=== PATIENT | female | born 1975 | race Caucasian/White ===

== ENCOUNTER 2024-01-02 12:46 | Emergency (ER) | payer BC, SELFPAY ==
--- NOTE | ~2024-01-02 | CT_ITS ---
EXAMINATION: CT HEAD WITHOUT CONTRAST CLINICAL INFORMATION: seizing COMPARISON: None available. TECHNIQUE: Contiguous axial imaging was performed from the skull base to vertex without intravenous administration of contrast. This CT examination was performed using dose optimization techniques as appropriate, variously including the following: *Automated exposure control *Adjustment of mA and/or kV according to patient size (this includes techniques or standardized protocols for targeted exams where dose is matched to indication/reason for exam; i.e. extremities or head) *Use of iterative reconstruction technique DLP: 613 mGy-cm FINDINGS: Bony calvarium is intact. Skull base is intact. Metallic pearcing in the right ear. No acute intracranial hemorrhage, mass effect, midline shift, hydrocephalus or herniation. Burrell-white matter differentiation is normal. Probable artifactual white matter hypodensities involving mostly the right occipital lobe. Sellar/suprasellar region is normal. Craniocervical junction is intact. No air-fluid levels in the included paranasal sinuses and likely post surgical changes in the paranasal sinuses suggesting bilateral inferior ethmoidectomies and medial wall maxillary antrostomies. Tympanic cavities and mastoid cells are aerated. CT/CT head/brain wo IV con IMPRESSION: No acute intracranial hemorrhage. Postsurgical changes, paranasal sinuses. If patient's symptoms persist posterior MRI brain. Electronically signed by: Billy Chen MD 01/02/2024 03:49 PM EDT
[2024-01-02 13:00] VITALS: BP 107/59; BP 121/76; PULSE 100; PULSE 93; RESP 20; TEMP 36.8; O2SAT 100; O2SAT 96; BMI 24.7
--- NOTE | 2024-01-02 13:31 | ED_ITS ---
HPI - General Adult General Chief complaint: Seizure Stated complaint: SEIZURE X 4,WITNESSED, 2-3 MIN,POSTICTAL,2MGVERCED Time Seen by Provider: 01/02/24 13:30 Source: patient and EMS Mode of arrival: EMS Limitations: physical limitation (patient seizing when arrived) History of Present Illness ED Provider: Tiffanie Norris PA-C HPI narrative: Patient is a 48 year old assigned female at with a history of post traumatic seizures presenting to the emergency department today after being found seizing. EMS states that the patient was found unresponsive in her car and had multiple seizures over the course of her transportation here. EMS states that the patient was given versed and has stopped seizing. Related Data Allergies Allergy/AdvReac Type Severity Reaction Status Date / Time No Known Allergies Allergy Verified 01/02/24 13:03 Review of Systems 2 Review of Systems: Yes Other (patient seizing) Neurologic: Reports convulsions and Reports seizure-like activity PMFSH Past Medical History Attestation statement: The following information was validated with the patient. Source: old records reviewed, nursing notes reviewed and other (patient's ex provided additional history) Social History Social History Advance Directives: No Advance Directives Information Provided: Yes Physical Exam ED Vital Signs: Vital Signs - 24 hr 01/02/24 13:00 01/02/24 14:44 01/02/24 16:26 Temperature 98.2 F 97.9 F 97.9 F Pulse Rate 93 78 78 Respiratory Rate 20 16 16 Blood Pressure 107/59 L 98/61 98/61 Pulse Oximetry 96 98 98 Oxygen Delivery Method Room Air Room Air Room Air BMI result Body Mass Index 24.7 Const Nutritional Appearance: well nourished Limitations: other limitations (patient seizing) HENMT Head: Yes normal to inspection and Yes atraumatic Ears: hearing grossly normal bilaterally and external ears normal General nose exam: Normal external nose present, no nasal discharge noted and no epistaxis Face and sinus: Yes normal facial exam, No abrasion and No laceration Mouth: Normal oral and palatal mucosa present, no drooling and no muffled voice Eyes General: appearance normal, both eyes and all related structures Periorbital: periorbital findings normal Eyelids: Yes eyelids normal Conjunctivae: conjunctivae normal Pupils: Equal, round and reactive pupils present Neck Neck: Yes normal visual inspection, Yes full ROM and Yes no lymphadenopathy Chest Chest palpation & inspection: normal inspection of the chest Resp Effort & Inspection: normal respiratory effort GI Inspection: Yes normal to inspection Neuro Cranial nerves: Yes Equal, round and reactive pupils present Extrem General: Yes normal to inspection, Yes full ROM and Yes capillary refill normal Psych Appearance: grossly normal Medications Administered Discontinued Medications Generic Name Dose Route Start Last Admin Trade Name Wallace PRN Reason Stop Dose Admin Levetiracetam 1,000 mg in 100 mls @ 400 mls/hr 01/02/24 13:31 01/02/24 14:06 Keppra IV 01/02/24 13:45 Infused ONCE ONE Infusion Magnesium Sulfate 2 gm in 50 mls @ 25 mls/hr 01/02/24 14:16 01/02/24 14:44 Magnesium Sulfate/H2o IV 01/02/24 16:15 25 mls/hr ONCE ONE Administration Midazolam HCl 5 mg 01/02/24 14:48 01/02/24 14:54 Midazolam Hcl/Pf 2 Mg/2 Ml Vial IVPUSH 01/02/24 14:49 5 mg ONCE ONE Administration Medical Decision Making Medical Decision Making [facility] Narrative: Patient is a 48 year old assigned female at with a history of post traumatic seizures presenting to the emergency department today after seizing. Patient's physical exam initially showed a seizing individual. Patient's blood work was unremarkable. Patient's urine showed no acute process. Patient's EKG showed a slightly prolonged QTC for which I proactively gave IV magnesium. Patient's head CT showed no acute process. Patient seized once while in the department and was given an additional 5mg of Versed, which stopped her seizing. Patient's ex called the department and informed me of the patient's history including post traumatic seizures for which she takes her medications and follows with her neurologist. He stated the patient has no substance use / abuse history what so ever and has been having issues with these seizures for a year. Patient eventually became awake and alert. Patient was AO x3 and understood she had a seizure. Patient was able to ambulate and tolerate PO intake without incident. Given she has not seized again, is on seizure medication at home, and follows with a neurologist - I felt comfortable with discharging her. I explained my physical exam findings as well as all test results to the patient. I answered all questions asked by the patient. I stressed the importance of the patient taking her medication as directed (either prescribed or as the over the counter packaging recommends). I stressed the importance of the patient following up with her primary care provider and her neurologist. I stressed the importance of the patient returning to the emergency department immediately if her symptoms were to worsen or if she were to develop any dizziness, shortness of breath, difficulty breathing, chest pain, blurry vision, loss of vision, nausea, vomiting, abdominal pain, fever, chills, back pain, or any other complaints. Patient verbalized agreement and understanding with this treatment plan and discharge. Differential Diagnosis Differential Diagnoses: The differential diagnosis associated with the presentation includes Breakthrough seizure Admission/Observation Consideration of admission/observation: Escalation of care including admission/observation considered Patient would have been admitted to the hospital had her work up had any findings where hospital admission was appropriate and her clinical presentation warranted hospital admission. Lab Data [facility] Lab Attestation statement: I reviewed the patient's lab results. My interpretation of these results are in the [facility] Rationale portion of this note. 01/02/24 14:10 01/02/24 14:10 Labs: Lab Results 01/02/24 01/02/24 01/02/24 Range/Units 14:10 14:50 15:52 WBC 7.1 (4.8-10.8) X10*3/uL RBC 3.93 L (4.20-5.50) X10*6/uL Hgb 11.9 L (12.0-16.0) g/dl Hct 34.6 L (37.0-47.0) % MCV 88.0 (80.0-98.0) fL MCH 30.3 (27.0-33.0) pg MCHC 34.4 (31.0-35.0) g/dl RDW 12.2 (11.0-16.0) % Plt Count 259 (160-400) X10*3/uL MPV 9.1 L (9.4-12.3) fL Immature Gran % (Auto) 0.3 (0.0-0.4) % Neut % (Auto) 70.8 (45-73) % Lymph % (Auto) 19.7 L (20-40) % [place] % (Auto) 7.3 (2-11) % Eos % (Auto) 0.8 (0-4) % Baso % (Auto) 1.1 (0-2) % Lymph # (Auto) 1.4 (1.2-4.9) X10*3/uL [place] # (Auto) 0.5 (0.1-1.2) X10*3/uL Eos # (Auto) 0.1 (0.0-0.4) X10*3/uL Baso # (Auto) 0.1 (0.0-0.2) X10*3/uL Abs Immat Gran (auto) 0.02 (0.00-0.03) X10*3/uL Absolute Neuts (auto) 5.0 (2.0-8.3) x10*3/uL Absolute Nucleated RBC 0.000 (0.0-0.012) X10*3/uL Nucleated RBC % (auto) 0.0 (0.0-0.2) /100WBC Sodium 142 (135-145) mmol/L Potassium 3.4 (3.3-5.1) mmol/L Chloride 115 H (96-108) mmol/L Carbon Dioxide 22 (22-29) mmol/L Anion Gap 8 L (12-20) BUN 10 (9-16) mg/dL Creatinine 0.71 (0.5-1.4) mg/dL Estim Creat Clear Calc 87.1 Estimated GFR > 60 Random Glucose 97 (60-115) mg/dL Calcium 9.0 (8.4-10.2) mg/dL Magnesium 2.0 (1.6-2.6) mg/dL Total Bilirubin 0.4 (0.0-1.0) mg/dL AST 15 (5-31) U/L ALT 10 (0-31) U/L Alkaline Phosphatase 60 (39-117) U/L Total Protein 5.9 L (6.5-8.0) g/dL Albumin 3.7 (3.5-5.0) g/dL Urine Color Yellow Urine Appearance Clear Urine pH 7.0 (5.0-9.0) Ur Specific [place] 1.010 (1.005-1.025) Urine Protein Negative (Neg-Trace) mg/dL Urine Glucose (UA) Negative (Negative) mg/dL Urine Ketones Negative (Negative) mg/dL Urine Blood Negative (Negative) Urine Nitrite Negative (Negative) Ur Leukocyte Esterase Trace H (Negative) Urine RBC 0-2 (0-2) /HPF Urine WBC 0-5 (0-5) /HPF Ur Squamous Epith Cells 6-10 (0-2) /HPF Urine Bacteria None Seen (None Seen) Hyaline Casts 0-2 (0-2) /LPF Influenza Type A (PCR) NEGATIVE (Negative) Influenza Type B (PCR) NEGATIVE (Negative) RSV RNA Qual (PCR) NEGATIVE (Negative) SARS-CoV-2 RNA (RT-PCR) NEGATIVE (Negative) Independent Interpretation I performed an independent interpretation of an: EKG and CT Scan Interpretation: My interpretation is in agreement with the radiologist's impression of this imaging study. L EXAMINATION: CT HEAD WITHOUT CONTRAST CLINICAL INFORMATION: seizing COMPARISON: None available. TECHNIQUE: Contiguous axial imaging was performed from the skull base to vertex without intravenous administration of contrast. This CT examination was performed using dose optimization techniques as appropriate, variously including the following: *Automated exposure control *Adjustment of mA and/or kV according to patient size (this includes techniques or standardized protocols for targeted exams where dose is matched to indication/reason for exam; i.e. extremities or head) *Use of iterative reconstruction technique DLP: 613 mGy-cm FINDINGS: Bony calvarium is intact. Skull base is intact. Metallic pearcing in the right ear. No acute intracranial hemorrhage, mass effect, midline shift, hydrocephalus or herniation. Burrell-white matter differentiation is normal. Probable artifactual white matter hypodensities involving mostly the right occipital lobe. Sellar/suprasellar region is normal. Craniocervical junction is intact. No air- fluid levels in the included paranasal sinuses and likely post surgical changes in the paranasal sinuses suggesting bilateral inferior ethmoidectomies and medial wall maxillary antrostomies. Tympanic cavities and mastoid cells are aerated. CT/CT head/brain wo IV con IMPRESSION: No acute intracranial hemorrhage. Postsurgical changes, paranasal sinuses. If patient's symptoms persist posterior MRI brain. Electronically signed by: Billy Chen MD 01/02/2024 03:49 PM EDT RP Dictated By: Billy Patel Signed By: Electronically signed by Billy Martel 01/02/24 1549 Vent. Rate: 101 BPM Atrial Rate: 101 BPM P-R Int: 156 ms QRS Dur: 078 ms QT Int: 394 ms P-R-T Axes: 074 -08 073 degrees QTc Int: 510 ms Sinus tachycardia Possible Left atrial enlargement Borderline ECG No previous ECGs available DD/ 1334 Radiology Impression Discussion of test interpretation with radiology: I have reviewed the radiologist's reading. Independent Historian Clinical information obtained from an independent historian. History obtained from or confirmed by: EMS (EMS provided additional history) and Other (patient's ex provided additional history) Critical Care Time Critical Care Time Critical Care Time: Yes Total Critical Care Time: 46 Attestation: I spent 46 minutes of Critical Care Time with this patient. This does not include time spent on separately reported billable procedures. Discharge Plan Discharge Clinical Impression: Focal seizure Patient Disposition: Home, Self-Care Instructions: Seizures After Traumatic Brain Injury (ED) Additional Instructions: Follow up with your primary care provider and your neurologist. Continue taking your seizure medication as prescribed, at the same time, every day. Return to the emergency department immediately if your symptoms worsen or if you develop any dizziness, shortness of breath, difficulty breathing, chest pain, blurry vision, loss of vision, nausea, vomiting, abdominal pain, fever, chills, back pain, or any other complaints. Referrals: [facility] [place] Family Medicine [Provider Group] (Call to establish and follow up with a primary care provider. If you already have a primary care provider, please follow up with them.) [facility] [place] Primary CareColleen [Provider Group] (Call to establish and follow up with a primary care provider. If you already have a primary care provider, please follow up with them.) [facility] [place] Primary CareMelva [Provider Group] (Call to establish and follow up with a primary care provider. If you already have a primary care provider, please follow up with them.) [facility] [place] Neuro/Sleep [Provider Group] (Call to establish and follow up with a neurologist.) Stand Alone Forms: Work/School Release Interventions: ED Discharge Assessment Last Done: 01/02/24 16:26 Discharge Date/Time: 01/02/24 16:28 Print Language: Lao
--- NOTE | 2024-01-02 13:31 | ECG_ITS ---
Test Reason : SEIZURE Blood Pressure : / mmHG Vent. Rate : 101 BPM Atrial Rate : 101 BPM P-R Int : 156 ms QRS Dur : 078 ms QT Int : 394 ms P-R-T Axes : 074 -08 073 degrees QTc Int : 510 ms Sinus tachycardia Possible Left atrial enlargement Borderline ECG No previous ECGs available Referred By: Tiffanie Norris Electronically Signed By:TITUS CULLEN
--- NOTE | 2024-01-02 13:49 | PC.NURSE ---
patient states to tech that she felt as if she was about to have a seizure, upon entering the room seizure like activity noted. provider made aware verbal order 5mg versed given
[2024-01-02] MEDS: levETIRAcetam in NaCl (iso-os) 1,000 MG/100 ML PIGGYBACK 400 MG IV (13:51)
[2024-01-02 14:15] LABS: MANUAL DIFF FLAG NO
[2024-01-02 14:16] LABS: Basophils Absolute Auto 0.1 X10*3/uL (0.0-0.2); Basophils Percent Auto 1.1 % (0-2); Eosinophils Absolute Auto 0.1 X10*3/uL (0.0-0.4); Eosinophils Percent Auto 0.8 % (0-4); Hematocrit 34.6 % (37.0-47.0); Hemoglobin 11.9 g/dl (12.0-16.0); Imm Gran Abs Auto 0.02 X10*3/uL (0.00-0.03); Imm Gran Pct Auto 0.3 % (0.0-0.4); Lymphocytes Absolute Auto 1.4 X10*3/uL (1.2-4.9); Lymphocytes Percent Auto 19.7 % (20-40); Mean Corpuscular HGB Conc 34.4 g/dl (31.0-35.0); Mean Corpuscular Hemoglobin 30.3 pg (27.0-33.0); Mean Platelet Volume 9.1 fL (9.4-12.3); Monocytes Absolute Auto 0.5 X10*3/uL (0.1-1.2); Monocytes Percent Auto 7.3 % (2-11); Neutrophils Percent Auto 70.8 % (45-73); Platelet Count 259 X10*3/uL (160-400); Red Blood Count 3.93 X10*6/uL (4.20-5.50); Red Cell Distribution Width 12.2 % (11.0-16.0); White Blood Count 7.1 X10*3/uL (4.8-10.8)
[2024-01-02 14:31] LABS: Alanine Aminotransferase 10 U/L (0-31); Albumin Level 3.7 g/dL (3.5-5.0); Alkaline Phosphatase 60 U/L (39-117); Anion Gap 8 (12-20); Aspartate Amino Transferase 15 U/L (5-31); Bilirubin Total 0.4 mg/dL (0.0-1.0); Blood Urea Nitrogen 10 mg/dL (9-16); Carbon Dioxide 22 mmol/L (22-29); Chloride 115 mmol/L (96-108); Creatinine Clr Calc Pharmacy 87.1; Estimated Glomerular Filt Rate > 60; Glucose Random 97 mg/dL (60-115); Potassium 3.4 mmol/L (3.3-5.1); Sodium 142 mmol/L (135-145); Total Protein 5.9 g/dL (6.5-8.0)
[2024-01-02 14:44] VITALS: BP 98/61; PULSE 78; RESP 16; TEMP 36.6; O2SAT 98
[2024-01-02] MEDS: Magnesium Sulfate/H2O 2 GM/50 ML PIGGYBACK IV (14:44)
[2024-01-02] MEDS: Midazolam HCl/PF 2 MG/2 ML VIAL 5 MG IVPUSH (14:54)
[2024-01-02 15:33] LABS: Influenza A PCR NEGATIVE (Negative); Influenza B PCR NEGATIVE (Negative); Resp Syncy Virus RNA Qual PCR NEGATIVE (Negative); SARS COV2 PCR INHOUSE NEGATIVE (Negative)
[2024-01-02 16:03] LABS: Appearance Urine Clear; Color Urine Yellow; Glucose Urine UA Negative (Negative); Leukocyte Esterase Urine Trace (Negative); Nitrite Urine Negative (Negative); UMIC TRIGGER UACC YES; Urine Blood Negative (Negative); Urine Ketones Negative (Negative); Urine Protein Negative (Neg-Trace)
[2024-01-02 16:05] LABS: Bacteria Urine None Seen (None Seen); Hyaline Casts Urine 0-2 /LPF (0-2); RBC Urine 0-2 /HPF (0-2); WBC Urine 0-5 /HPF (0-5)
[2024-01-02 16:26] VITALS: BP 98/61; PULSE 78; RESP 16; TEMP 36.6; O2SAT 98
== END 2024-01-02 16:28 | disposition home or self-care (01) ==
PROVIDERS: Physician Assistant Medical; Emergency Provider Emergency Medicine Emergency Medical Services
DX: R56.9 Unspecified convulsions (principal); R40.4 Transient alteration of awareness; R00.0 Tachycardia, unspecified; Z03.818 Encounter for observation for suspected exposure to other biological agents ruled out; Z79.899 Other long term (current) drug therapy
CPT/HCPCS: 0241U; 70450; 80053; 81001; 81003; 83735; 85025; 93005; 96374; 96375; 99284; J1953; J2250; J3475

== ENCOUNTER → 2024-01-02 13:31 | Outpatient (BNV) | payer BC, SELFPAY | PROVIDERS: Emergency Provider Emergency Medicine Emergency Medical Services; Visit Provider Internal Medicine | DX: R00.0 Tachycardia, unspecified (principal); R94.31 Abnormal electrocardiogram [ECG] [EKG]; G40.89 Other seizures | CPT/HCPCS: 93010 ==

== ENCOUNTER → 2024-01-02 13:31 | Outpatient (BNV) | payer BC, SELFPAY | PROVIDERS: Emergency Provider Emergency Medicine Emergency Medical Services; Visit Provider Radiology Diagnostic Radiology | DX: G40.89 Other seizures (principal) | CPT/HCPCS: 70450 ==

== ENCOUNTER 2024-11-09 12:28 | Emergency (ER) | payer BC, SELFPAY ==
[2024-11-09] VITALS (8 sets, daily range): BP systolic 106–124; BP diastolic 64–77; PULSE 62–83; RESP 13–22; TEMP 36.8–37.1; O2SAT 98–100; BMI 26.7
--- NOTE | ~2024-11-09 | CT_ITS ---
EXAMINATION: CT HEAD WITHOUT CONTRAST CLINICAL INFORMATION: Headache COMPARISON: 01/02/2024 TECHNIQUE: Contiguous axial imaging was performed from the skull base to vertex without intravenous administration of contrast. This CT examination was performed using dose optimization techniques as appropriate, variously including the following: *Automated exposure control *Adjustment of mA and/or kV according to patient size (this includes techniques or standardized protocols for targeted exams where dose is matched to indication/reason for exam; i.e. extremities or head) *Use of iterative reconstruction technique DLP: 629 mGY*cm FINDINGS: There is no acute ischemic change. There is no intracranial hemorrhage. There is no mass-effect or midline shift. Basal cisterns and ventricles are within normal limits for age/cerebral volume. Orbits are symmetrical and unremarkable. Paranasal sinuses and mastoid air cells are pneumatized. Bilateral uncinectomy has been performed, unchanged. No other bony abnormalities are evident. CT/CT head/brain wo IV con IMPRESSION: No acute intracranial abnormality. Changes from prior bilateral sinus surgery. Electronically signed by: Albert Miles MD 11/09/2024 02:10 PM EDT
--- NOTE | 2024-11-09 12:53 | ECG_ITS ---
Test Reason : SEIZURE Blood Pressure : */* mmHG Vent. Rate : 63 BPM Atrial Rate : 63 BPM P-R Int : 180 ms QRS Dur : 82 ms QT Int : 434 ms P-R-T Axes : 68 -2 65 degrees QTcB Int : 444 ms Normal sinus rhythm Normal ECG When compared with ECG of 02-Jan-2024 13:34, Vent. rate has decreased by 38 bpm QT has shortened Referred By: Trini Cha Electronically Signed By: LEATHA HAYES MD
[2024-11-09 12:56] LABS: Glucose, Whole Blood 79 mg/dL (60-115)
--- NOTE | 2024-11-09 12:58 | ED.SEIZURE ---
HPI - Seizure General Chief Complaint: Seizure Stated Complaint: Seizure Time Seen by Provider: 11/09/24 12:40 Source: patient, EMS and old records reviewed Mode of arrival: EMS Limitations: no limitations History of Present Illness ED Provider: ANA HPI Narrative: 48 yo female with PMH of TBI and seizures on keppra, vimpat and topamax but admits to missing some keppra. She reportedly had 5 min seizure at home unclear if she fell with no return to baseline in between and what looked like 6 shaking episodes in that 5 min duration. EMS noted another seizure with hypoxia to 82% lasting 5 min. She was given 2mg IV versed. On arrival she is sleepy but not confused, no tongue biting or incontinence. She c/o mild headache. She reports not taking meds and lack of sleep as the cause of symptoms MD complaint: seizure Onset (ago): day(s) (today [employer]) Description of Episode: loss of consciousness Duration of episode: 5 -: minutes(s) Witnessed: Yes - by Bystander Trauma: No Seizure History: Yes Place: Home Possible Precipitating Event: lack of sleep and medication Associated symptoms: denies other symptoms Treatments prior to arrival: benzodiazepines Related Data Allergies Allergy/AdvReac Type Severity Reaction Status Date / Time No Known Allergies Allergy Verified 11/09/24 12:56 Review of Systems Review of Systems: Constitutional : No Fever, No Chills, No Fatigue ENT/Mouth : No sore throat, No Rhinorrhea Eyes: No Eye Pain, No Swelling, No Redness Cardiovascular : No Chest Pain, No SOB, No Dyspnea on Exertion Respiratory : No Cough, No Sputum Gastrointestinal : No Nausea, No Vomiting, No Diarrhea, No abdominal Pain Genitourinary : No Dysuria, No Urinary Frequency, No Hematuria, Musculoskeletal : No joint pain, No Myalgias, No Joint Swelling Skin : No Skin Lesions, No rash Neuro : No Weakness, No Numbness, No Dizziness, positive Headache Psych : No Anxiety/Panic, No Depression Heme/Lymph: No Bruising, No Bleeding,No Lymphadenopathy Endocrine : No Polyuria, No Polydipsia All other systems reviewed and are negative [facility] Past Medical History Attestation statement: The following information was validated with the patient. Source: old records reviewed Medical History Seizure Social History Social History (Updated 11/09/24 @ 13:12 by Trini Cha DO) Patient Tobacco Use Status: Tobacco use Unknown Smoked in Last 30 Days: No Use of substances other than those prescribed or required for medical reasons: No Advance Directives: Yes Advance Directives Information Provided: Yes Advance Directives on File: No Patient : No Physical Exam Vital Signs: Vital Signs: Last Vital Signs Temp 98.5 F 11/09/24 18:28 Pulse 70 11/09/24 18:28 Resp 22 H 11/09/24 18:28 BP 110/68 11/09/24 18:28 Pulse Ox 99 11/09/24 18:28 O2 Del Method Room Air 11/09/24 18:28 BMI result Body Mass Index 26.7 Appearance: Alert. Oriented X3. No acute distress. fatigue and tired Eyes: Pupils equal, round and reactive to light. ENT: Pharynx normal. Neck: Normal inspection. Neck supple. CVS: Normal heart rate and rhythm. Pulses normal. Respiratory: No respiratory distress. Breath sounds normal. Abdomen: Soft and nontender. Skin: Skin warm and dry. Normal skin color. Normal skin turgor. Extremities: No lower extremity edema. No calf ttp Neuro: Oriented X 3. No motor deficit. No sensory deficit. CN2-12 intact Course Course Course Narrative: signed out to Dr. Carvalho pending improvement from medications she is still sleepy - anticipate DC home Medications Administered Discontinued Medications Generic Name Dose Route Start Last Admin Trade Name Wallace PRN Reason Stop Dose Admin Diazepam 2.5 mg 11/09/24 12:54 11/09/24 13:05 Diazepam 10 Mg/2 Ml Cartridge IVPUSH 11/09/24 12:55 2.5 mg STAT STA Administration Levetiracetam 1,500 mg in 100 mls @ 400 mls/hr 11/09/24 12:53 11/09/24 13:24 Keppra IV 11/09/24 13:07 Infused ONCE ONE Infusion Medical Decision Making Medical Decision Making [facility] Narrative: 48 yo female with known seizures not compliant with keppra s/p seizure will give additional valium and IV keppra - suspect non compliance. C/o headache unclear if there was trauma CT head ordered, Will monitor closely At 19:00 patient awake alert no acute distress. Will discharge patient home. CT scan of the head showed no acute bleeding. Patient told she needs to take her medication on a regular basis. She will be discharged home in stable condition. Differential Diagnosis Differential Diagnoses: The differential diagnosis associated with the presentation includes non compliance, seizures, head injury Admission/Observation Consideration of admission/observation: Escalation of care including admission/observation considered observed x 3 hours - stable VS at baseline, given valium and IV keppra I think it is reasonable to send her home given she was not taking her keppra and if she resumes her medications she should be able to manage seizures Lab Data 11/09/24 13:10 11/09/24 13:10 Labs: Lab Results 11/09/24 11/09/24 11/09/24 Range/Units 12:53 13:10 15:04 WBC 6.4 (4.8-10.8) X10*3/uL RBC 4.08 L (4.20-5.50) X10*6/uL Hgb 12.4 (12.0-16.0) g/dl Hct 36.2 L (37.0-47.0) % MCV 88.7 (80.0-98.0) fL MCH 30.4 (27.0-33.0) pg MCHC 34.3 (31.0-35.0) g/dl RDW 12.5 (11.0-16.0) % Plt Count 237 (160-400) X10*3/uL MPV 8.8 L (9.4-12.3) fL Immature Gran % (Auto) 0.5 H (0.0-0.4) % Neut % (Auto) 77.0 H (45-73) % Lymph % (Auto) 15.4 L (20-40) % [place] % (Auto) 5.8 (2-11) % Eos % (Auto) 0.5 (0-4) % Baso % (Auto) 0.8 (0-2) % Lymph # (Auto) 1.0 L (1.2-4.9) X10*3/uL [place] # (Auto) 0.4 (0.1-1.2) X10*3/uL Eos # (Auto) 0.0 (0.0-0.4) X10*3/uL Baso # (Auto) 0.1 (0.0-0.2) X10*3/uL Abs Immat Gran (auto) 0.03 (0.00-0.03) X10*3/uL Absolute Neuts (auto) 4.9 (2.0-8.3) x10*3/uL Absolute Nucleated RBC 0.000 (0.0-0.012) X10*3/uL Nucleated RBC % (auto) 0.0 (0.0-0.2) /100WBC Sodium 143 (135-145) mmol/L Potassium 3.9 (3.3-5.1) mmol/L Chloride 113 H (96-108) mmol/L Carbon Dioxide 24 (22-29) mmol/L Anion Gap 10 L (12-20) BUN 13 (9-16) mg/dL Creatinine 0.73 (0.5-1.4) mg/dL Estim Creat Clear Calc 90.8 Estimated GFR > 60 POC Glucose 79 (60-115) mg/dL Random Glucose 93 (60-115) mg/dL Calcium 8.3 L D (8.4-10.2) mg/dL Magnesium 1.9 (1.6-2.6) mg/dL Total Bilirubin 0.3 (0.0-1.0) mg/dL Direct Bilirubin 0.1 (0.0-0.5) mg/dL AST 14 (5-31) U/L ALT 9 (0-31) U/L Alkaline Phosphatase 58 (39-117) U/L Total Protein 6.1 L (6.5-8.0) g/dL Albumin 4.1 (3.5-5.0) g/dL Ethyl Alcohol < 10 mg/dL COVID-19 (STU) Negative (Negative) COVID-19 Clin Com See Note Independent Interpretation I performed an independent interpretation of an: EKG and CT Scan (normal ) Interpretation: Rate: 63 Rhythm: NSR [place]: normal Normal P waves. Normal DIGNA. Normal QRS complex. ST T wave : normal no CLARA qTC: 444 prior studies: no acute ischemia The study has been interpreted contemporaneously by me. . Radiology Impression Discussion of test interpretation with radiology: I have reviewed the radiologist's reading. Independent Historian Clinical information obtained from an independent historian. History obtained from or confirmed by: EMS External Record Review External record reviewed: Outpatient record Discharge Plan Discharge Clinical Impression: Generalized seizure Patient Disposition: Home, Self-Care Instructions: Recurrent Seizures in Adults (ED) Additional Instructions: given IV keppra while in ED return for any worsening symptoms or concerns stay with responsible adult for 24 hours resume your seizure medications tonight please take your medications as prescribed no driving, swimming alone, cooking over an open flame Referrals: Alhaji Dietz MD [Physician, Neurology] Referral Note: Please take your seizure medicine. No driving no activities that would put her in danger if he ever seizure at that time. Print Language: Maori
[2024-11-09] MEDS: diazePAM 10 MG/2 ML CARTRIDGE 2.5 MG IVPUSH (13:05)
[2024-11-09] MEDS: levETIRAcetam in NaCl (iso-os) 1,500 MG/100 ML PIGGYBACK 400 MG IV (13:05)
--- NOTE | 2024-11-09 13:12 | PC.NURSE ---
Pt states she works from home and isn't sure who would have been there to try to administer ativan (per EMS). no Sz activity since arrival to ED.
[2024-11-09 13:16] LABS: MANUAL DIFF FLAG NO
[2024-11-09 13:22] LABS: Hematocrit 36.2 % (37.0-47.0); Hemoglobin 12.4 g/dl (12.0-16.0); Imm Gran Abs Auto 0.03 X10*3/uL (0.00-0.03); Imm Gran Pct Auto 0.5 % (0.0-0.4); Lymphocytes Absolute Auto 1.0 X10*3/uL (1.2-4.9); Mean Corpuscular HGB Conc 34.3 g/dl (31.0-35.0); Mean Corpuscular Hemoglobin 30.4 pg (27.0-33.0); Mean Corpuscular Volume 88.7 fL (80.0-98.0); NRBC Abs Auto 0.000 X10*3/uL (0.0-0.012); NRBC Pct Auto 0.0 /100WBC (0.0-0.2); Platelet Count 237 X10*3/uL (160-400); Red Blood Count 4.08 X10*6/uL (4.20-5.50); White Blood Count 6.4 X10*3/uL (4.8-10.8)
[2024-11-09 13:32] LABS: Alanine Aminotransferase 9 U/L (0-31); Albumin Level 4.1 g/dL (3.5-5.0); Alkaline Phosphatase 58 U/L (39-117); Anion Gap 10 (12-20); Aspartate Amino Transferase 14 U/L (5-31); Blood Urea Nitrogen 13 mg/dL (9-16); Calcium 8.3 mg/dL (8.4-10.2); Carbon Dioxide 24 mmol/L (22-29); Chloride 113 mmol/L (96-108); Creatinine Clr Calc Pharmacy 90.8; Estimated Glomerular Filt Rate > 60; Magnesium 1.9 mg/dL (1.6-2.6); Potassium 3.9 mmol/L (3.3-5.1); Sodium 143 mmol/L (135-145); Total Protein 6.1 g/dL (6.5-8.0)
--- NOTE | 2024-11-09 14:41 | PC.NURSE ---
up to BR with steady gait.
[2024-11-09 15:23] LABS: COVID-19 Test Negative (Negative); IDNOW Serial# 08D9AD1C
--- OUTSIDE RECORDS SUMMARY | 2024-11-09 16:13 | XMS_ITS | Clinical Summary ---
Author Organization [facility] Address [address] [place] [address] Care Team Providers Care Load Tester Name Role Phone Enoc Barros Primary Care Provider Allergies No known active allergies Medications Dulera 100-5 mcg/actuation inhaler Inhale 2 puffs by mouth. Active tiZANidine (ZANAFLEX) 4 mg tablet Take 4 mg by mouth every 8 (eight) hours. 01/27/2023 Active naproxen (NAPROSYN) 500 mg tablet Take 250 mg by mouth 2 times a day with meals. 10/21/2023 Active levETIRAcetam (KEPPRA) 750 mg tablet Take 1 tablet (750 mg total) by mouth 2 times a day. 180 tablet 3 01/09/2024 Active topiramate XR (TROKENDI XR) 200 mg capsule,extende d release 24hr Take 1 capsule twice a day 180 capsule 3 01/09/2024 Active aspirin/acetami nophen/caffeine (EXCEDRIN MIGRAINE ORAL) Take by mouth. Active nortriptyline (PAMELOR) 10 mg capsule Take 1 capsule (10 mg total) by mouth nightly. 30 capsule 5 01/14/2024 Active magnesium gluconate (MAGONATE) 27 mg magnesium (500 mg) tablet Take 1 tablet (500 mg total) by mouth once a day. Take 1 tablet once a day 30 tablet 11 01/14/2024 Active riboflavin, vitamin B2, 400 mg tablet Take 1 tablet (400 mg total) by mouth once a day. Take 1 tablet daily 90 tablet 3 01/19/2024 Active ubrogepant 100 mg tablet Take 1 tablet at onset migraine, may repeat in 2 hours. Maximum 2/day, 4/week 48 tablet 3 01/19/2024 Active Active Problems Problem Noted Date Diagnosed Date Migraine with aura and witho ut status migrainosus, not intractable 10/28/2023 Seizure disorder 10/28/2023 Concussion syndrome 10/28/2023 Vertigo 10/28/2023 Neuralgia of right upper extremity 10/28/2023 Social History Tobacco Use Types Packs/Day Years Used Date Smoking Tobacco: Never Assessed Comments Unknown Sex and Gender Information Value Date Recorded Sex Assigned at Female 10/27/2023 3:40 PM EDT Legal Sex Female 2:45 AM EDT Gender Identity Female 10/27/2023 3:40 PM EDT Sexual Orientation Straight 10/27/2023 3: 40 PM EDT Last Filed Vital Signs Vital Sign Reading Time Taken Comments Blood Pressure 118/76 10/28/2023 2:16 PM EDT Pulse 80 10/28/2023 2:16 PM EDT Temperature 36.7 C (98 F) 10/28/2023 2:16 PM EDT Respiratory Rate - - Oxygen Saturation 98% 10/28/2023 2:16 PM EDT Inhaled Oxygen Concentration - - Weight 63.6 kg (140 lb 4.8 oz) 10/28/2023 2:16 P M EDT Height - - Body Mass Index - - Plan of Treatment Health Maintenance Due Date Last Done Comments Cervical Cancer Screening 1975 Cologuard 1975 Colonoscopy 1975 HIV Screening 1975 HPV and Pap Smear 1975 Pap Smear 1975 Sigmoidoscopy 1975 Hepatitis B Vaccines (1 of 3 - 19+ 3-dose series) 11/27/1994 Colon Cancer Screening 02/16/2024 FOBT / Fit Test 02/16/2024 02/15/2023 Alcohol/Substance Use Screening 03/03/2024 Depression Screening and Follow-Up 03/03/2024 Social Drivers of Health Arleen ual Screening 03/03/2024 Mammogram 03/19/2024 03/19/2022 COVID-19 Vaccine (3 - 2024-2 6 season) 2024 12/26/2021, 01/31/2020 Influenza Vaccine (#1) 2024 , 01/30/2022, 11/13/2020, Additional history exists Pneumococcal Vaccine: Pediat sonya (0-5 Years) and At-Risk Patients (6-50 Years) (3 of 3 - PCV20 or PCV21) 11/27/2025 12/18/2012, 12/18/2012 DTaP,Tdap,and Td Vaccines (3 - Td or Tdap) 01/11/2026 01/12/2016, 10/30/2009 RSV Vaccine (60+ years old a nd patients) (1 - 1-dose 75+ series) 11/27/2050 Hepatitis C Screening Completed 10/13/2011 Procedures * Due to [place] [employer] law, this organization might not be sharing negative HIV tests. Procedure Name Priority Date/Time Associated Diagnosis Comments [facility] SCREENING DIGITAL MAMMO Routine 03/19/2022 2:47 PM EST HEPATITIS C RNA, QUANTITATIVE, PCR Routine 10/13/2011 11:44 AM EDT from Last 3 Months or Most Recently Relevant to Health Maintenance Results * Due to [place] [employer] law, this organization might not be sharing negative HIV tests. * [facility] Screening Digital Mammogram (03/19/2022 2:47 PM EST) Anatomical Region Laterality Modality Breast Mammography 03/19/2022 2:16 PM EST Narrative 04/11/2022 7:27 AM EST DEPARTMENT OF RADIOLOGY Patient: NELL CAROBILL ROWELL Unit #: [id number] Ordering MD: MANNY VIVEROS NP : 1975 Procedure: Digital Mammo Screen Age: 46 Location: C.MAMMO Exam Date: 03/19/22 Status: REG [facility] Room/Bed: Primary MD: MANNY VIVEROS NP Patient Order: [id number] Additional Copy: MANNY VIVEROS NP - THIS REPORT HAS BEEN AMENDED. #[id number] - DIGSCRMAM BILATERAL DIGITAL TOMOSYNTHESIS SCREENING MAMMOGRAM WITH CAD: 03/19/2022 CLINICAL: Routine. Digital 2D mammogram, synthesized 2D views and 3D Tomosynthesis views were obtained. Current study was also evaluated with a Computer Aided Detection (CAD) system. No prior exams were available for comparison. The breasts are heterogeneously dense, which may obscure small masses. No significant masses, calcifications, or other findings are seen in either breast. IMPRESSION: NEGATIVE There is no mammographic evidence of malignancy. A 1 year screening mammogram is recommended. This exam was interpreted at [place]. POI: [place]. Electronically signed by: Chandni Cortez M.D. in/penrad:03/24/2022 10:58:46 letter sent: A-2 Normal Benign Mammogram BI-RADS: 1 Negative YOLANDE AMENDMENT: 04/10/2022 Electronically signed by:Anna Butler M.D. Prior outside mammograms dated 04/08/2017 and 02/01/2021 are now available for comparison. Stable mammographic appearance of the breasts. No evidence of malignancy. BI-RADS Category 1: Negative. Amended BI-RADS: 1 Negative Procedure Note Anna Butler MD - 11/27/2022 DEPARTMENTOF RADIOLOGY Karla t: BILL CALDERA Unit #:[id number] Ordering MD: MANNY VIVEROS NP :1975 Procedure: Digital Mammo Screen Age:46 Location: C.MAMMO ExamDate: 03/19/22 Status: REG CLIRoom/Bed: Primary MD: MANNY VIVEROS NP PatientAcct #: [id number] Order:[id number] Additional Copy: MANNY VIVEROS NP - THIS REPORT HAS BEEN AMENDED. #[id number] - DIGSCRMAM BILATERAL DIGITAL TOMOSYNTHESIS SCREENING MAMMOGRAM WITH CAD: 03/19/2022 CLINICAL: Routine. Digital 2D mammogram, synthesized 2D views and 3D Tomosynthesis views were obtained. Current study was also evaluated with a Computer Aided Detection (CAD) system. No prior exams were available for comparison. The breasts are heterogeneously dense, which may obscure small masses. No significant masses, calcifications, or other findings are seen in either breast. IMPRESSION: NEGATIVE There is no mammographic evidence of malignancy. A 1 year screening mammogram is recommended. This exam was interpreted at [place]. POI: [place]. Electronically signed by: Chandni Cortez M.D. in/colt:03/24/2022 10:58:46 letter sent: A-2 Normal Benign Mammogram BI-RADS: 1 Negative [facility] AMENDMENT: 04/10/2022 Electronically signed by:Anna Butler M.D. Prior outside mammograms dated 04/08/2017 and 02/01/2021 are now available for comparison. Stable mammographic appearance of the breasts. No evidence of malignancy. BI-RADS Category 1: Negative. Amended BI-RADS: 1 Negative Manny Viveros NP IMG BI PROCEDURES Final Result * Hepatitis C RNA, Quantitative, PCR (10/13/2011 11:44 AM EDT) HCVCR Not Detected Not detected [facility] HCV PCR Quantitative <43 <43 IU/mL [facility] HCV PCR Quantitative Log <1.6 <1.6 logIU/mL [facility] HCVPCR Interpretation See note () [facility] Comment: Comments: The quantitative range of the VENKATA AmpliPrep/VENKATA TaqMan HCV Test is 43-69,000,000 IU/ml (1.6-7.8 log IU/ml). In addition to the sample result being expressed as both international units per milliliter (IU/ml) units and as log IU/ml, this report interprets if the virus was Detected , Not detected or Detected but below Quantitative range as described below in more detail: a) Detected - means that the viral titer in the sample is above the assay's lower limit of quantitation (43 IU/ml); b) Detected - Not Quant - means that the viral titer in the sample is below the lower limit of quantitation but above the assay's lower limit of detection (at least 18 IU/ml; for details see below); Limits of Detection for different genotypes are listed below: Genotype 1:7.1 IU/ml with positivity rate of 96% Genotype 2: 15.3 IU/ml with positivity rate of 100% Genotype 3: 9.8 IU/ml with positivity rate of 100% Genotype 4: 5.6 IU/ml with positivity rate of 96% Genotype 5: 18.3 IU/ml with positivity rate of 100% Genotype 6: 9.7 IU/ml with positivity rate of 96% c) Not Detected - means that the viral titer in the sample is below the assay's lower limit of detection. An interpretation of Not Detected does not rule out the presence of HCV that is not detectable for reasons such as PCR inhibitors or HCV virus RNA concentrations below the lower level of detection of the assay. This test is intended for use in conjunction with clinical presentation and other laboratory indices of disease progress as an aid in the clinical management of HCV infected patients. The test can be used to assess patient prognosis by monitoring the effect of antiretroviral therapy on plasma HCV levels during the course of treatment. Limitations: The VENKATA AmpliPrep/VENKATA TaqMan HCV Test is not intended for use as a screening test for the presence of HCV in blood or blood products or as a diagnostic test to confirm the initial presence of HCV infection. General Disclaimer: Interpretation of this test may be affected by the presence of rare viral RNA variants. Methodology: The VENKATA AmpliPrep/VENKATA TaqMan HCV Test utilizes automated specimen preparation followed by automated reverse clam sorter, PCR amplification and detection of cleaved dual-labeled detection probes specific to the HCV target RNA. This HCV test is standardized against the First WHO International Standard for Hepatitis C Virus RNA for Nucleic Acid Amplification Technology Assays ([facility] code 96/790) and titer results are reported in International Units (IU/ml). Specimens containing HCV genotypes 1 - 6 have been validated for quantitation in the assay. One IU/ml of HCV RNA is equivalent to approximately 5.2 copies/ml. Test Lab: This assay is approved for In Vitro Diagnostic (IVD) use by the FDA. This test is used for clinical purposes, and it should not be regarded as investigational or for research. The Molecular Diagnostics Laboratory at [facility] is certified under the Clinical Laboratory Improvement Amendments of 1988 (CLIA '88) as qualified to perform high complexity testing. 10/13/2011 11:4 4 AM EDT 10/13/2011 3:41 PM EDT us Unknown Provider MD LAB BLOOD ORDERABLES Final R esult [facility] from Last 3 Months or Most Recently Relevant to Health Maintenance Insurance BCBS OUT OF STATE PPO Care Teams Load Tester Relationship Specialty Start Date End Date Enoc Barros [address] [place] [id number] PCP - General Internal Medicine 09/09/23
--- OUTSIDE RECORDS SUMMARY | 2024-11-09 16:13 | XMS_ITS ---
Author Name [facility] Organization Unknown History of Medication Use Medication Directions Dispensed Refills Start Date End Date Stat us guaiFENesin (MUCINEX) 600 mg Ta12 Take 600-1,200 mg by mouth 2 (two) times a day as needed (cough) for up to 7 days Max daily dose: 2400mg. 03/11/2024 03/19/2024 active ubrogepant (UBRELVY) 100 mg tab Take 1 tablet at onset migraine, may repeat in 2 hours. Maximum 2/day, 4/week 07/07/2023 active albuterol 90 mcg/actuation inhaler INHALE 2 PUFFS BY MOUTH 4 TIMES A DAY NEEDED FOR WHEEZING 05/28/2021 active Problems Problem Status Onset Date Problem Type Date of Resolution Source Acute non-recurrent pansinusitis active EncounterDiagnosisAct [facility] Encounters Encounter Type Encounter Reason Primary Diagnosis Location Date Ambulatory Nose Complaint Acute pansinusit is, unspecified [facility] 03/11/2024 Care Team Organization Name Specialty Phone Email Start Date End Da te [facility] NO PCP Primary Care 03/12
--- OUTSIDE RECORDS SUMMARY | 2024-11-09 16:13 | XMS_ITS | Clinical Summary ---
Author Organization [facility] Address [address] [place] [address] Care Team Providers Care Oil Rag Washer Name Role Phone Luca Morocho MD Primary Care Provider [phone] Family History Medical History Relation Name Comments Hypertension Father Hypertension Mother Relation Name Status Comments Father Mother Social History Tobacco Use Types Packs/Day Years Used Date Smoking Tobacco: Never Assessed Tobacco Cessation:Counseling Given: Not Answered Comments Unknown Sex and Gender Information Value Date Recorded Sex Assigned at Female 03/10/2023 3:31 PM EST Legal Sex Female 3:26 PM EST Gender Identity Female 03/10/2023 3:31 PM EST Sexual Orientation Not on file Plan of Treatment Health Maintenance Due Date Last Done Comments Hepatitis C Screening 1975 Pap Smear 1991 DTaP/Tdap/Td (1 - Tdap) 11/27/1993 Hep B (1 of 3 - 19+ 3-dose series) 11/27/1994 Mammogram/Breast Imaging 2015 Colon Cancer Screening 11/27/2020 COVID-19 Vaccine ( - 2023-2 5 season) 2024 Influenza (#1) 2024 Zoster (Shingrix) (1 of 2) 11/27/2025 HPV Vaccine (No Doses Required) Completed Hep A Aged Out No longer eligi ble based on patient's age to complete this topic Hib Aged Out No longer eligi ble based on patient's age to complete this topic Meningococcal ACWY Aged Out No longer eligible based on patient's age to complete this topic Pneumococcal Aged Out No longer eligi ble based on patient's age to complete this topic Insurance BC FEE FOR SERVICE PPO Care Teams Oil Rag Washer Relationship Specialty Start Date End Date Luca Morocho MD [address] [place] [id number] PCP - General Internal Medicine 03/10/23
--- OUTSIDE RECORDS SUMMARY | 2024-11-09 16:13 | XMS_ITS | Encounter Summary ---
Author Organization [facility] Address [address] [place] [address] Care Team Providers Care Product Development Intern Name Role Phone IvetteEnoc fraire Primary Care Provider [phone] Encounter Details Date Type Department Care Team (Late st Contact Info) Description 01/30/2022 Orders Only [facility] [address] [place] [id number] Alexi Rendon, AdryanD Social History Tobacco Use Types Packs/Day Years Used Date Smoking Tobacco: Never Assessed Comments Unknown Sex and Gender Information Value Date Recorded Sex Assigned at Female 10/27/2023 3:40 PM EDT Legal Sex Female 2:45 AM EDT Gender Identity Female 10/27/2023 3:40 PM EDT Sexual Orientation Straight 10/27/2023 3: 40 PM EDT documented as of this encounter Plan of Treatment Not on file documented as of this encounter Visit Diagnoses Not on filedocumented in this encounter Care Teams Product Development Intern Relationship Specialty Start Date End Date FiorellaAnhno [address] [place] [phone] PCP - General Internal Medicine 09/09/23 documented as of this encounter
--- OUTSIDE RECORDS SUMMARY | 2024-11-09 16:13 | XMS_ITS | Clinical Summary ---
Author Organization [facility] Address [address] [place] [address] Care Team Providers Care Field Kiln Burner Name Role Phone Pcp, No Primary Care Provider [phone] Allergies Active Allergy Reactions Criticality Noted Date Comments Amoxicillin GI Intolerance 04/03/2024 Medications omeprazole (PriLOSEC) 20 MG capsule Take 1 capsule (20 mg total) by mouth Active levETIRAcetam (KEPPRA) 750 MG tablet Take 1 tablet (750 mg total) by mouth 2 Active FLUoxetine (PROzac) 40 MG capsule 2 Active albuterol 90 mcg/actuation inhaler INHALE 2 PUFFS BY MOUTH 4 TIMES A DAY NEEDED FOR WHEEZING 2 Active loratadine 10 mg 10 mg tablet Take 1 tablet (10 mg total) by mouth Active topiramate (TOPAMAX) 200 MG tablet Take 1 tablet (200 mg total) by mouth 2 Active tiZANidine (ZANAFLEX) 4 MG tablet TAKE 1 TABLET BY MOUTH EVERY 8 HOURS 2 Active ubrogepant (UBRELVY) 100 mg tab Take 1 tablet at onset migraine, may repeat in 2 hours. Maximum 2/day, 4/week 4 Active mometasone/form oterol (DULERA INHL) Inhale 200 mcg 2 puffs daily 3 Active sodium chloride (OCEAN) 0.65 % nasal spray Instill 1 spray into each nostril as needed for congestion 15 mL 12 5 03/11/19 26 Active SUMAtriptan (IMITREX) 50 MG tablet TAKE 1 TABLET BY MOUTH NEEDED FOR MIGRAINE HEADACHES MAT REPEAT DOSE IN 2 HOURS IF NEEDED 11/07/202 3 Active riboflavin, vitamin B2, 400 mg tab Take 400 mg by mouth 4 Active Immunizations Name Administration Dates Next Due Fluzone Trivalent Prefilled Syringe (18+ months) 04/03/2024 Moderna Spikevax Covid-19 Prefilled Syringe (12+ years) 04/03/2024 Social History Tobacco Use Types Packs/Day Years Used Date Smoking Tobacco: Never Passive Smoke Exposure: Never Smokeless Tobacco: Never Tobacco Cessation:Counseling Given: Yes Alcohol Use Standard Drinks/Week Comments Not Currently 0 (1 standard drink = 0.6 oz pur e alcohol) Comments No Sex and Gender Information Value Date Recorded Sex Assigned at Not on file Legal Sex Female 10:10 PM EST Gender Identity Not on file Sexual Orientation Not on file Last Filed Vital Signs Vital Sign Reading Time Taken Comments Blood Pressure 126/86 04/03/2024 3:12 PM EST Pulse 94 04/03/2024 3:12 PM EST Temperature 36.7 C (98 F) 04/03/2024 3:12 PM EST Respiratory Rate 18 04/03/2024 3:12 PM EST Oxygen Saturation 97% 04/03/2024 3:12 PM EST Inhaled Oxygen Concentration - - Weight 61.2 kg (135 lb) 03/11/2024 5:32 PM EST Height 170.2 cm (5' 7 ) 03/11/2024 5:32 PM EST Body Mass Index 21.14 03/11/2024 5:32 PM EST Plan of Treatment Health Maintenance Due Date Last Done Comments Colorectal Cancer: COLONOSCO PY Screening every 10 yrs (or Modifier) 1975 Depression: Screening Annual ly using PHQ-2/9 in Adults 18 yrs or above (or HM Modifier)([facility]) 11/27/1993 Human Immunodeficiency Virus (HIV) Infection: Screening Annually (or Modifier)([facility]) 11/27/1993 SDOH Screening Reminder: Arleen mujica for all adults ([facility]) 11/27/1993 Pneumococcal Vaccination Scr eening: Pts 0-19 & 19-49 yrs of age ([facility]) (1 of 2 - PCV) 11/27/1994 12/18/2012 Cervical Cancer Screenin 1-65 yrs of age (or Modifier) 11/27/1996 Cervical Cancer Screening: P ap every 3 yrs pts age 21-65 11/27/1996 Cervical Cancer: Pap Screeni ng with Modifier timing ([facility]) 11/27/1996 Cervical Cancer: hrHPV alone or with cotesting Pap for Pts 30-65yrs screening every 5yrs ([facility]) 11/27/1996 Colorectal Cancer Screening 45 -75 Yrs (or HM Modifier) 11/27/2020 Colorectal Cancer: FLEXIBLE SIGMOIDOSCOPY Screening every 5 yrs 11/27/2020 Colorectal Cancer: Fecal Immunochemical Test (FIT) Annually [facility] 11/27/2020 Colorectal Cancer: High-sens itivity gFOBT Screening Annually [facility] 11/27/2020 Colorectal Cancer: Stool Col oguard Screening every 3 yrs 11/27/2020 Colorectal Cancer:CT Colonog corin Screening every 5 yrs 11/27/2020 Flu Vaccination: Yearly for ages 18mos through 64 years (or Modifier)([facility]) 10/01/2024 04/03/2024, 11/20/2022, 01/30/2022, Additional history exists Zoster/Shingles Vaccine Seri es Screening: Adults aged 18+ yrs (or HM Modifiers)([facility]) (1 of 2) 11/27/2025 DTaP/Tdap/Td Vaccines ([facility]) (3 - Td or Tdap) 01/11/2026 01/12/2016, 10/30/2009 Hepatitis C Virus Infection in Adolescents and Adults: Screening (or Modifier) ([facility]) Completed 10/13/2011 Medical Devices Not on file Insurance [facility] Member Subscriber Plan / Payer (Ef fective 2023-Present) Name:Evelin Nelson Relation to Subscriber:Spouse Name:LIEN VIEIRA Date of :1971 Payer ID:Not on file Type:Not on file Address: [address] Care Teams Field Kiln Burner Relationship Specialty Start Date End Date Pcp, No PCP - General Family Medicine 03/11/24
--- NOTE | 2024-11-09 16:27 | PC.NURSE ---
pt sleeping. NAD.
== END 2024-11-09 19:30 | disposition home or self-care (01) ==
PROVIDERS: Emergency Medicine; Emergency Provider Emergency Medicine Emergency Medical Services
DX: R56.9 Unspecified convulsions (principal); R51.9 Headache, unspecified; R55 Syncope and collapse; Z91.199 Patient's noncompliance with other medical treatment and regimen due to unspecified reason; Z79.899 Other long term (current) drug therapy; Z51.81 Encounter for therapeutic drug level monitoring; Z11.52 Encounter for screening for COVID-19
CPT/HCPCS: 36415; 70450; 80048; 80076; 80307; 82947; 83735; 85025; 87635; 93005; 96365; 96375; 99284; 99285; J1953; J3360

== ENCOUNTER → 2024-11-09 12:53 | Outpatient (BNV) | payer BC, SELFPAY | PROVIDERS: Emergency Provider Emergency Medicine; Visit Provider Internal Medicine Cardiovascular Disease | DX: R56.9 Unspecified convulsions (principal) | CPT/HCPCS: 93010 ==

== ENCOUNTER → 2024-11-09 12:59 | Outpatient (BNV) | payer BC, SELFPAY | PROVIDERS: Emergency Provider Emergency Medicine; Visit Provider Radiology Diagnostic Radiology | DX: R51.9 Headache, unspecified (principal) | CPT/HCPCS: 70450 ==